=== PATIENT | female | born 1995 | race Caucasian/White ===

== ENCOUNTER 2024-07-01 09:36 | Outpatient (CLI) | payer OTHER, SELFPAY ==
[2024-07-01 10:18] LABS: Basophils Percent Auto 0.1 % (0.2-1.2); Eosinophils Absolute Auto 0.1 K/mm3 (0-0.3); Hematocrit 41.1 % (37.0-47.0); Hemoglobin 13.4 g/dL (12.0-15.0); Immature Granulocyte Absolute 0.02 K/mm3 (0.00-0.031); Immature Granulocyte Percent A 0.2 % (0-0.5); Lymphocytes Absolute Auto 1.39 K/mm3 (0.9-3.2); Lymphocytes Percent Auto 17.3 % (18.3-44.2); Mean Corpuscular HGB Conc 32.6 g/dl (32-36); Mean Corpuscular Hemoglobin 29.9 pg (26-34); Mean Corpuscular Volume 91.7 fl (80-100); Mean Platelet Volume 10.5 fl (7.4-10.4); Monocytes Absolute Auto 0.5 K/mm3 (0.1-0.6); Monocytes Percent Auto 5.9 % (2.6-8.5); Neutrophils Absolute Auto 6.1 K/mm3 (1.3-6.7); Neutrophils Percent Auto 75.5 % (45.5-73.1); Platelet Count Result 301 k/mm3 (150-375); Red Blood Count 4.48 M/mm3 (4.2-5.4); Red Cell Distribution Width 12.4 % (11.5-14.5)
[2024-07-01 10:38] LABS: Cholesterol 189 mg/dL (0-200); HDL Direct 49 mg/dL; Triglycerides 83 mg/dL (<150)
[2024-07-01 10:49] LABS: LDL Cholesterol Direct 113 mg/dL
[2024-07-01 11:49] LABS: Hemoglobin A1C 5.2 % (<5.7)
[2024-07-01 21:15] LABS: Progesterone <0.5 ng/mL
[2024-07-02 08:14] LABS: DHEA-Sulfate 182 mcg/dL (14-349); FSH 10.7 mIU/mL; Prolactin 7.1 ng/mL
[2024-07-04 20:43] LABS: Testosterone Free 3.2 pg/mL (0.1-6.4); Testosterone Total 29 ng/dL (2-45)
[2024-07-13 02:13] LABS: Estradiol, Ultrasensitive 38 pg/mL
== END 2024-07-01 09:37 | disposition home or self-care (01) ==
LOC: ANHLAB 09:38
PROVIDERS: Visit Provider Obstetrics & Gynecology
DX: E66.9 Obesity, unspecified (principal); N92.6 Irregular menstruation, unspecified; Z78.9 Other specified health status
CPT/HCPCS: 36415; 80061; 82627; 82670; 83001; 83036; 83498; 84144; 84146; 84402; 84403; 84443; 85025

== ENCOUNTER 2024-07-21 07:23 | Outpatient (CLI) | payer OTHER, SELFPAY ==
[2024-07-25 08:07] LABS: Progesterone 12.9 ng/mL
== END 2024-07-21 07:24 | disposition home or self-care (01) ==
LOC: ANHLAB 07:23
PROVIDERS: Visit Provider Obstetrics & Gynecology
DX: N92.6 Irregular menstruation, unspecified (principal)
CPT/HCPCS: 36415; 84144

== ENCOUNTER 2024-10-23 07:06 | Outpatient (CLI) | payer OTHER, SELFPAY ==
[2024-10-24 09:47] LABS: Progesterone 18.5 ng/mL
== END 2024-10-23 07:07 | disposition home or self-care (01) ==
PROVIDERS: Visit Provider Obstetrics & Gynecology
DX: Z78.9 Other specified health status (principal)
CPT/HCPCS: 36415; 84144

== ENCOUNTER 2024-11-18 10:47 | Outpatient (CLI) | payer OTHER, SELFPAY ==
[2024-11-18 12:33] LABS: Basophils Percent Auto 0.3 % (0.2-1.2); Eosinophils Absolute Auto 0.1 K/mm3 (0-0.3); Eosinophils Percent Auto 0.8 % (0-4.4); Hematocrit 40.5 % (37.0-47.0); Hemoglobin 13.5 g/dL (12.0-15.0); Immature Granulocyte Absolute 0.02 K/mm3 (0.00-0.031); Immature Granulocyte Percent A 0.3 % (0-0.5); Lymphocytes Absolute Auto 1.44 K/mm3 (0.9-3.2); Lymphocytes Percent Auto 20.2 % (18.3-44.2); Mean Corpuscular HGB Conc 33.3 g/dl (32-36); Mean Corpuscular Hemoglobin 30.1 pg (26-34); Mean Corpuscular Volume 90.2 fl (80-100); Mean Platelet Volume 10.2 fl (7.4-10.4); Monocytes Absolute Auto 0.4 K/mm3 (0.1-0.6); Neutrophils Absolute Auto 5.2 K/mm3 (1.3-6.7); Neutrophils Percent Auto 73.4 % (45.5-73.1); Platelet Count Result 284 k/mm3 (150-375); Red Blood Count 4.49 M/mm3 (4.2-5.4); Red Cell Distribution Width 12.7 % (11.5-14.5); White Blood Count 7.1 K/mm3 (4.5-10.0)
[2024-11-18 13:05] LABS: Glucose 1 Hour PP 50gm Dose 116 mg/dL
[2024-11-18 13:26] LABS: Rapid Plasma Reagin Non-Reactive (NonReactive)
[2024-11-18 13:42] LABS: HIV 1/2 Ab P24 Ag Result Negative (Negative)
[2024-11-18 13:51] LABS: Hepatitis B Surface Antigen Negative (Negative); Rubella IgG Antibody 37.1 IU/ML
[2024-11-20 03:34] LABS: Varicella IgG Antibody <1.00 S/CO
[2024-11-20 20:08] LABS: CMV IgG Antibody >10.00 U/mL
== END 2024-11-18 10:48 | disposition home or self-care (01) ==
LOC: ANHLAB 10:49
PROVIDERS: Visit Provider Obstetrics & Gynecology
DX: N94.89 Other specified conditions associated with female genital organs and menstrual cycle (principal)
CPT/HCPCS: 36415; 81220; 81329; 82947; 84702; 85025; 86592; 86644; 86703; 86747; 86762; 86787; 86850; 86900; 86901; 87086; 87340; G0432

== ENCOUNTER 2025-01-06 09:18 | Emergency (ER) | payer OTHER, SELFPAY ==
--- NOTE | ~2025-01-06 | US_ITS ---
EXAMINATION: US OB <=14 wk fetus w TV DATE: 01/06/2025 13:41 INDICATION: Vaginal bleeding in . TECHNIQUE: Real-time transabdominal and transvaginal pelvic ultrasound was performed. COMPARISON: Ultrasound 12/09/2024 FINDINGS: TRANSABDOMINAL ULTRASOUND: The uterus measures 10.6 x 5.8 x 5.9 cm. TRANSVAGINAL ULTRASOUND: There is an intrauterine gestational sac. The crown rump length measu res 3.1 cm, which correlates with an estimated gestational age of 10 weeks and 0 day(s) (+/-) 6 day(s ). heart motion is not identified by M-mode Doppler. The ovaries are not visualized. There is n o free fluid in the pelvis. IMPRESSION: 1. demise. Reviewed, dictated and finalized at location A. [facility] [employer] APPRENTICE IMPRESSION: 1. demise.
[2025-01-06 09:18] VITALS: BP 147/97; PULSE 98; RESP 16; TEMP 36.4; O2SAT 100
--- NOTE | 2025-01-06 11:24 | ED_ITS ---
HPI - General Chief complaint: Vaginal Bleeding <Rajwinder Finley PA-C - Last Filed: 01/06/25 14:45> Stated complaint: 13 weeks preg, heavy bleeding and cramping <Rajwinder Finley PA-C - Last Filed: 01/06/25 14:45> Time Seen by Provider: 01/06/25 11:24 <Rajwinder Finley PA-C - Last Filed: 01/06/25 14:45> Focused HPI: This is a 29 year old female that presents to the ER for heavy vaginal bleeding. Reports this started last night and continued into today. She is 13 weeks . She has had an US this . Her OB is Dr. Rg. GENERAL: Well-appearing, well-nourished, and in no acute distress. HEAD: Normocephalic, atraumatic. CHEST: Clear to auscultation. ?No respiratory distress. HEART: Regular rate and rhythm.? NEURO: ?Alert and oriented x3. Patient screened in triage and initial orders placed.? ?Additional care and disposition to be based upon?diagnostic testing and treatment. <Rajwinder Finley PA-C - Last Filed: 01/06/25 14:45> History of Present Illness HPI Narrative: Agree with HPI. Slightly more bleeding spotting but has not filled a pad. This is her 1st . <Jak aBrnhart MD - Last Filed: 01/06/25 14:17> Related Data Home medications: Home Medications ?Medication ?Instructions ?Recorded ?Confirmed ?Last Taken ?Type docosahexaenoic acid 200 mg mg PO 11/18/24 12/17/24 Unknown History capsule ( DHA) <Rajwinder Finley PA-C - Last Filed: 01/06/25 14:45> Allergies/Adverse reactions: Allergies Allergy/AdvReac Type Severity Reaction Status Date / Time Penicillins Allergy Intermediate Rash Verified 01/06/25 12:32 <Rajwinder Finley PA-C - Last Filed: 01/06/25 14:45> Review of Systems 2 Review of Systems: All systems reviewed & are unremarkable except as noted in HPI and below <Jak Barnhart MD - Last Filed: 01/06/25 14:17> Constitutional: Constitutional: Reports no additional constitutional complaints <Jak Barnhart MD - Last Filed: 01/06/25 14:17> Cardiovascular: Cardiovascular: Reports no additional cardiovascular complaints <Jak Barnhart MD - Last Filed: 01/06/25 14:17> Respiratory: Respiratory: Reports no additional respiratory complaints < Jak Barnhart MD - Last Filed: 01/06/25 14:17> Gastrointestinal: Gastrointestinal: Reports no additional gastrointestinal complaints <Jak Barnhart MD - Last Filed: 01/06/25 14:17> PMFSH Past Medical History Medical History: Medical History Suppression of menses <Rajwinder Finley PA-C - Last Filed: 01/06/25 14:45> Family History Family History: Family History Other Hypertension <Rajwinder Finley PA-C - Last Filed: 01/06/25 14:45> Social History Social History: Social History Smoking status: Never smoker Alcohol intake: never Substance use: never Substance use type: does not use Do You Feel Safe in your Home?: Yes Current Housing: Decline to Answer Concerned About Future Housing: Decline to Answer Difficulty Paying Gas/Electric Bills: Decline to Answer Difficulty Paying for Meds: Decline to Answer Currently Unemployed: Decline to Answer Education: Decline to Answer Difficulty w/ Childcare or Family Care: Decline to Answer Living arrangements: with family Additional living arrangements comments: Occupation/Education: occupation Gender identity (if verbalized by the patient): Female Sexual Orientation (if Verbalized by the Patient): Straight or Heterosexual <Rajwinder Finley PA-C - Last Filed: 01/06/25 14:45> Exam 2 Narrative: GENERAL: Well-appearing, well-nourished, and in no acute distress. HEAD: Normocephalic, atraumatic. ENT: Mucous membranes moist. CHEST: Clear to auscultation. No respiratory distress. HEART: Regular rate and rhythm. Normal peripheral pulses. ABDOMEN: Soft, nontender, nondistended. EXTREMITIES: Normal range of motion. No edema. NEURO: Alert and oriented x3. PSYCH: Normal mood and affect. <Jak Barnhart MD - Last Filed: 01/06/25 14:17> Course Course Emergency Course: Patient resting comfortably. Informed of results. Discussed with Dr. Puckett. Expectant management, f/u tomorrow in clinic for further evaluation. < Jak Barnhart MD - Last Filed: 01/06/25 14:17> Vital Signs Vital signs: Vital Signs Temperature 97.6 F 01/06/25 09:18 Pulse Rate 98 01/06/25 09:18 Respiratory Rate 16 01/06/25 09:18 Blood Pressure 147/97 H 01/06/25 09:18 Pulse Oximetry 100 01/06/25 09:18 Temperature 97.6 F 01/06/25 09:18 Pulse Rate 92 01/06/25 14:30 Respiratory Rate 16 01/06/25 14:30 Blood Pressure 141/98 H 01/06/25 14:30 Pulse Oximetry 100 01/06/25 14:30 <Rajwinder Finley PA-C - Last Filed: 01/06/25 14:45> Vital Signs Temperature 97.6 F 01/06/25 09:18 Pulse Rate 98 01/06/25 09:18 Respiratory Rate 16 01/06/25 09:18 Blood Pressure 147/97 H 01/06/25 09:18 Pulse Oximetry 100 01/06/25 09:18 Temperature 97.6 F 01/06/25 09:18 Pulse Rate 92 01/06/25 14:30 Respiratory Rate 16 01/06/25 14:30 Blood Pressure 141/98 H 01/06/25 14:30 Pulse Oximetry 100 01/06/25 14:30 <Jak Barnhart MD - Last Filed: 01/06/25 14:17> MDM - OB/Uterine Contractions Lab Data Result diagrams: 01/06/25 12:26 01/06/25 12:26 <Rajwinder Finley PA-C - Last Filed: 01/06/25 14:45> Labs: Lab Results 01/06/25 Range/Units 12:26 WBC 7.9 (4.5-10.0) K/mm3 RBC 4.74 (4.2-5.4) M/mm3 Hgb 14.1 (12.0-15.0) g/dL Hct 42.3 (37.0-47.0) % MCV 89.2 (80-100) fl MCH 29.7 (26-34) pg MCHC 33.3 (32-36) g/dl RDW 12.1 (11.5-14.5) % Plt Count 308 (150-375) k/mm3 MPV 9.9 (7.4-10.4) fl Immature Gran % (Auto) 0.4 (0-0.5) % Neut % (Auto) 74.7 H (45.5-73.1) % Lymph % (Auto) 19.0 (18.3-44.2) % [place] % (Auto) 4.8 (2.6-8.5) % Eos % (Auto) 0.8 (0-4.4) % Baso % (Auto) 0.3 (0.2-1.2) % Lymph # (Auto) 1.51 (0.9-3.2) K/mm3 [place] # (Auto) 0.4 (0.1-0.6) K/mm3 Eos # (Auto) 0.1 (0-0.3) K/mm3 Baso # (Auto) 0.0 (0.0-0.1) K/mm3 Abs Immat Gran (auto) 0.03 (0.00-0.031) K/mm3 Absolute Neuts (auto) 5.9 (1.3-6.7) K/mm3 Absolute Nucleated RBC 0.000 (0.0-0.012) K/mm3 Nucleated RBC % 0.0 (0.0-0.2) % PT 12.5 (11.1-14.7) Seconds INR 0.9 APTT 30.7 (22.3-36.8) Seconds Sodium 139 (137-145) mmol/L Potassium 4.3 (3.4-5.0) mmol/L Chloride 103 (98-107) mmol/L Carbon Dioxide 26 (22-30) mmol/L Anion Gap 10 (4-12) mmol/L BUN 9 (7-17) mg/dL Creatinine 0.45 L (0.7-1.0) mg/dL Estim Creat Clear Calc 188 ml/min Estimated GFR > 60 (59 - ) Glucose 92 (65-110) mg/dL Calcium 9.7 (8.4-10.2) mg/dL Total Bilirubin 1.0 (0.2-1.3) mg/dL AST 27 (14-36) U/L ALT 17 (6-35) U/L Alkaline Phosphatase 49 (38-126) U/L Total Protein 9.0 H (6.3-8.2) g/dL Albumin 4.5 (3.5-5.1) g/dL Beta HCG, Quant 1175.20 mIU/ML Blood Type O Positive Antibody Screen Negative Screen Not Reportable Baby's Blood Type Not Reportable Baby's KALIA Not Reportable Doses of RhIg Required 0 <Rajwinder Finley PA-C - Last Filed: 01/06/25 14:45> Lab Results 01/06/25 Range/Units 12:26 WBC 7.9 (4.5-10.0) K/mm3 RBC 4.74 (4.2-5.4) M/mm3 Hgb 14.1 (12.0-15.0) g/dL Hct 42.3 (37.0-47.0) % MCV 89.2 (80-100) fl MCH 29.7 (26-34) pg MCHC 33.3 (32-36) g/dl RDW 12.1 (11.5-14.5) % Plt Count 308 (150-375) k/mm3 MPV 9.9 (7.4-10.4) fl Immature Gran % (Auto) 0.4 (0-0.5) % Neut % (Auto) 74.7 H (45.5-73.1) % Lymph % (Auto) 19.0 (18.3-44.2) % [place] % (Auto) 4.8 (2.6-8.5) % Eos % (Auto) 0.8 (0-4.4) % Baso % (Auto) 0.3 (0.2-1.2) % Lymph # (Auto) 1.51 (0.9-3.2) K/mm3 [place] # (Auto) 0.4 (0.1-0.6) K/mm3 Eos # (Auto) 0.1 (0-0.3) K/mm3 Baso # (Auto) 0.0 (0.0-0.1) K/mm3 Abs Immat Gran (auto) 0.03 (0.00-0.031) K/mm3 Absolute Neuts (auto) 5.9 (1.3-6.7) K/mm3 Absolute Nucleated RBC 0.000 (0.0-0.012) K/mm3 Nucleated RBC % 0.0 (0.0-0.2) % PT 12.5 (11.1-14.7) Seconds INR 0.9 APTT 30.7 (22.3-36.8) Seconds Sodium 139 (137-145) mmol/L Potassium 4.3 (3.4-5.0) mmol/L Chloride 103 (98-107) mmol/L Carbon Dioxide 26 (22-30) mmol/L Anion Gap 10 (4-12) mmol/L BUN 9 (7-17) mg/dL Creatinine 0.45 L (0.7-1.0) mg/dL Estim Creat Clear Calc 188 ml/min Estimated GFR > 60 (59 - ) Glucose 92 (65-110) mg/dL Calcium 9.7 (8.4-10.2) mg/dL Total Bilirubin 1.0 (0.2-1.3) mg/dL AST 27 (14-36) U/L ALT 17 (6-35) U/L Alkaline Phosphatase 49 (38-126) U/L Total Protein 9.0 H (6.3-8.2) g/dL Albumin 4.5 (3.5-5.1) g/dL Beta HCG, Quant 1175.20 mIU/ML Blood Type O Positive Antibody Screen Negative Screen Not Reportable Baby's Blood Type Not Reportable Baby's KALIA Not Reportable Doses of RhIg Required 0 <Jak Barnhart MD - Last Filed: 01/06/25 14:17> Imaging Data Radiologist's impression: ITS Impressions Obstetrics Ultrasound 01/06/25 13:43 IMPRESSION: 1. demise. <Jak Barnhart MD - Last Filed: 01/06/25 14:17> Critical Care Time Critical Care Time Critical Care Time: No <Rajwinder Finley PA-C - Last Filed: 01/06/25 14:45> Discharge Plan Discharge Clinical Impression: demise, less than 22 weeks <Rajwinder Finley PA-C - Last Filed: 01/06/25 14:45> Patient Disposition: Home, Self-Care <Rajwinder Finley PA-C - Last Filed: 01/06/25 14:45> Condition: Stable <RADHA Hightower Last Filed: 01/06/25 14:45> Instructions: Miscarriage (ED) <RADHA Hightower Last Filed: 01/06/25 14:45> Additional Instructions: Contact your OBs office to schedule follow-up appointment for tomorrow. Return the ER if your bleeding through more than 1 pad an hour for 3 continuous hours, he developed fever 100.4? F, or you have additional concerns. Take Tylenol or ibuprofen as needed for pain. <Rajwinder Finley PA-C - Last Filed: 01/06/25 14:45> Patient Language: [place] Zealander <Rajwinder Finley PA-C - Last Filed: 01/06/25 14:45> Prescriptions: No Action DHA 200 mg capsule PO <RADHA Hightower Last Filed: 01/06/25 14:45> Follow-up/Referrals: UNKNOWN,DOCTOR [Primary Care Provider] - Otto Puckett MD [Physician] - 1 Day <RADHA Hightower Last Filed: 01/06/25 14:45>
[2025-01-06 12:32] LABS: Basophils Percent Auto 0.3 % (0.2-1.2); Eosinophils Absolute Auto 0.1 K/mm3 (0-0.3); Eosinophils Percent Auto 0.8 % (0-4.4); Hematocrit 42.3 % (37.0-47.0); Hemoglobin 14.1 g/dL (12.0-15.0); Immature Granulocyte Absolute 0.03 K/mm3 (0.00-0.031); Immature Granulocyte Percent A 0.4 % (0-0.5); Lymphocytes Absolute Auto 1.51 K/mm3 (0.9-3.2); Mean Corpuscular HGB Conc 33.3 g/dl (32-36); Mean Corpuscular Hemoglobin 29.7 pg (26-34); Mean Corpuscular Volume 89.2 fl (80-100); Mean Platelet Volume 9.9 fl (7.4-10.4); Monocytes Absolute Auto 0.4 K/mm3 (0.1-0.6); Monocytes Percent Auto 4.8 % (2.6-8.5); Neutrophils Absolute Auto 5.9 K/mm3 (1.3-6.7); Neutrophils Percent Auto 74.7 % (45.5-73.1); Platelet Count Result 308 k/mm3 (150-375); Red Blood Count 4.74 M/mm3 (4.2-5.4); Red Cell Distribution Width 12.1 % (11.5-14.5); White Blood Count 7.9 K/mm3 (4.5-10.0)
[2025-01-06 12:44] LABS: INR 0.9; Prothrombin Time 12.5 Seconds (11.1-14.7)
[2025-01-06 12:45] LABS: Partial Thromboplastin Time 30.7 Seconds (22.3-36.8)
[2025-01-06 12:57] LABS: Alanine Aminotransferase 17 U/L (6-35); Albumin Level 4.5 g/dL (3.5-5.1); Alkaline Phosphatase 49 U/L (38-126); Anion Gap 10 mmol/L (4-12); Aspartate Amino Transferase 27 U/L (14-36); Blood Urea Nitrogen 9 mg/dL (7-17); Calcium 9.7 mg/dL (8.4-10.2); Carbon Dioxide 26 mmol/L (22-30); Chloride 103 mmol/L (98-107); Estimated CRCL calculation 188 ml/min; Estimated Glomerular Filt Rate > 60; Glucose 92 mg/dL (65-110); Potassium 4.3 mmol/L (3.4-5.0); Sodium 139 mmol/L (137-145)
[2025-01-06 14:30] VITALS: BP 141/98; PULSE 92; RESP 16; O2SAT 100
== END 2025-01-06 14:30 | disposition home or self-care (01) ==
PROVIDERS: Physician Assistant; Emergency Provider Emergency Medicine
DX: O36.4XX0 Maternal care for intrauterine death, not applicable or unspecified (principal); Z3A.13 13 weeks gestation of pregnancy
CPT/HCPCS: 36415; 76801; 76817; 80053; 84702; 85025; 85461; 85610; 85730; 86850; 86900; 86901; 99284

== ENCOUNTER 2025-01-08 17:36 | Inpatient (IN) | payer OTHER, SELFPAY ==
[2025-01-08 17:42] VITALS: BP 150/108; PULSE 90; RESP 16; TEMP 36; O2SAT 100
--- NOTE | 2025-01-08 18:11 | ED.PREGNANCY ---
HPI - General Chief complaint: Vaginal Bleeding <Rajwinder Finley PA-C - Last Filed: 01/09/25 15:16> Stated complaint: miscarriage-heavy vaginal bleeding <Rajwinder Finley PA-C - Last Filed: 01/09/25 15:16> Time Seen by Provider: 01/08/25 18:11 <Rajwinder Finley PA-C - Last Filed: 01/09/25 15:16> Focused HPI: This is a 29 year old female that presents to the ER for vaginal bleeding. Reports she is currently miscarrying. Her OB is Dr. Rg. She is scheduled for a D&C on January 11. She started to have more sever bleeding tonight which prompted her to be seen. GENERAL: Well-appearing, well-nourished, and in no acute distress. HEAD: Normocephalic, atraumatic. CHEST: Clear to auscultation. ?No respiratory distress. HEART: Regular rate and rhythm.? NEURO: ?Alert and oriented x3. Patient screened in triage and initial orders placed.? ?Additional care and disposition to be based upon?diagnostic testing and treatment. <Rajwinder Finley PA-C - Last Filed: 01/09/25 15:16> Focused HPI: This is a 29 year old female that presents to the ER for vaginal bleeding. Reports she is currently miscarrying. Her OB is Dr. Rg. She is scheduled for a D&C on January 11. She started to have more severe bleeding tonight which prompted her to be seen. GENERAL: Well-appearing, well-nourished, and in no acute distress. HEAD: Normocephalic, atraumatic. CHEST: Clear to auscultation. ?No respiratory distress. HEART: Regular rate and rhythm.? NEURO: ?Alert and oriented x3. Patient screened in triage and initial orders placed.? ?Additional care and disposition to be based upon?diagnostic testing and treatment. <Maryellen Oreilly APRN - Last Filed: 01/09/25 01:41> History of Present Illness HPI Narrative: I agree with the assessment and documentation of Rajwinder Finley PA-C. <Maryellen Oreilly APRN - Last Filed: 01/09/25 01:41> Related Data Home medications: Home Medications ?Medication ?Instructions ?Recorded ?Confirmed ?Last Taken ?Type No Home Medications 01/09/25 01/09/25 Unknown History <Rajwinder Finley PA-C - Last Filed: 01/09/25 15:16> Allergies/Adverse reactions: Allergies Allergy/AdvReac Type Severity Reaction Status Date / Time Penicillins Allergy Intermediate Rash Verified 01/09/25 03:59 <Rajwinder Finley PA-C - Last Filed: 01/09/25 15:16> Review of Systems Review of Systems: All systems reviewed & are unremarkable except as noted in HPI and below <Maryellen Oreilly APRN - Last Filed: 01/09/25 01:41> PMFSH Past Medical History Medical History: Medical History Suppression of menses <Rajwinder Finley PA-C - Last Filed: 01/09/25 15:16> Family History Family History: Family History Other Hypertension <RADHA Hightower Last Filed: 01/09/25 15:16> Social History Social History: Social History Smoking status: Never smoker Alcohol intake: never Substance use: never Substance use type: does not use Do You Feel Safe in your Home?: Yes Lack of Transportation: No Lack of Food: Never True Current Housing: I Have Housing Concerned About Future Housing: No Difficulty Paying Gas/Electric Bills: No Difficulty Paying for Meds: No Currently Unemployed: No Education: Bachelor's Degree Difficulty w/ Childcare or Family Care: No Living arrangements: with family Additional living arrangements comments: Occupation/Education: occupation Gender identity (if verbalized by the patient): Female Sexual Orientation (if Verbalized by the Patient): Straight or Heterosexual Spiritual care concerns: No <Rajwinder Finley PA-C - Last Filed: 01/09/25 15:16> Exam Narrative: GENERAL: Well appearing, well-nourished, non-toxic, in no acute distress. HEAD: Normocephalic, atraumatic. NECK: Supple. No adenopathy, no masses. RESPIRATORY: Airway patent, respirations nonlabored. Clear to auscultation bilaterally, no rales, rhonchi, wheezing. CARDIOVASCULAR: Regular rate and rhythm without murmurs, rubs, or gallops. Peripheral pulses 2+ and equal bilaterally. ABDOMINAL: Soft, nontender, nondistended, no hepatosplenomegaly. Normoactive BS. MUSCULOSKELETAL: Moves all extremities. Strength/ROM intact without gross deformities. SKIN: Warm, dry, normal color. No rashes. NEURO: A&O X3. Speech clear. Cranial nerves II-XII grossly intact. Steady gait. No ataxic movements. PSYCHIATRIC: Appropriate mood and affect. Normal interaction. : Minimal amount of vaginal bleeding during speculum exam but possible products of conception visible at cervix <Maryellen Oreilly APRN - Last Filed: 01/09/25 01:41> Course Vital Signs Vital signs: Vital Signs Temperature 96.8 F L 01/08/25 17:42 Pulse Rate 90 01/08/25 17:42 Respiratory Rate 16 01/08/25 17:42 Blood Pressure 150/108 H 01/08/25 17:42 Pulse Oximetry 100 01/08/25 17:42 Temperature 97.9 F 01/09/25 09:27 Pulse Rate 86 01/09/25 13:17 Respiratory Rate 16 01/09/25 09:27 Blood Pressure 114/78 01/09/25 13:17 Pulse Oximetry 96 01/09/25 13:16 Oxygen Delivery Room Air 01/09/25 09:10 <Rajwinder Finley PA-C - Last Filed: 01/09/25 15:16> Vital Signs Temperature 96.8 F L 01/08/25 17:42 Pulse Rate 90 01/08/25 17:42 Respiratory Rate 16 01/08/25 17:42 Blood Pressure 150/108 H 01/08/25 17:42 Pulse Oximetry 100 01/08/25 17:42 Temperature 97.9 F 01/09/25 09:27 Pulse Rate 86 01/09/25 13:17 Respiratory Rate 16 01/09/25 09:27 Blood Pressure 114/78 01/09/25 13:17 Pulse Oximetry 96 01/09/25 13:16 Oxygen Delivery Room Air 01/09/25 09:10 <Maryellen Oreilly APRN - Last Filed: 01/09/25 01:41> MDM - OB/Uterine Contractions MDM Narrative Medical decision making narrative: This is a 29 year old female that presents to the ER for vaginal bleeding. Reports she is currently miscarrying. Her OB is Dr. Rg. She is scheduled for a D&C on January 11. She started to have more severe bleeding tonight which prompted her to be seen. Labs Ordered: CBC, CMP, UA, RH immune globulin, INR, APTT, beta hCG quant Imaging Ordered: None necessary Medications Ordered: None necessary Results: Pt's beta hCG quant was 374, no UTI on urinalysis Diagnosis: demise, vaginal bleeding Consults: 2400- Dr. Puckett called for OBGYN consult. 0115- Dr. Puckett called back and reports he will perform a D & C on pt in the morning. He requests she stays NPO through the rest of the night. Dr. Puckett reports he will accept the pt under his name and she can go to [facility] to wait for her procedure. Patient Education/Shared MDM: Results shared with patient. She denies the need for any pain medication. Pt is in agreement and verbalizes understanding of plan. <Maryellen Oreilly APRN - Last Filed: 01/09/25 01:41> Differential Diagnosis Differential diagnosis: Likely other ( demise, vaginal bleeding, spontaneous ) <Maryellen Oreilly APRN - Last Filed: 01/09/25 01:41> Lab Data Attestation: I reviewed the patient's lab results. <Maryellen Oreilly APRN - Last Filed: 01/09/25 01:41> Result diagrams: 01/08/25 21:24 01/08/25 21:24 <Rajwinder Finley PA-C - Last Filed: 01/09/25 15:16> Labs: Lab Results 01/08/25 01/09/25 01/09/25 Range/Units 21:24 00:01 00:05 WBC 11.8 H (4.5-10.0) K/mm3 RBC 4.46 (4.2-5.4) M/mm3 Hgb 13.3 (12.0-15.0) g/dL Hct 39.3 (37.0-47.0) % MCV 88.1 (80-100) fl MCH 29.8 (26-34) pg MCHC 33.8 (32-36) g/dl RDW 12.2 (11.5-14.5) % Plt Count 285 (150-375) k/mm3 MPV 10.2 (7.4-10.4) fl Immature Gran % (Auto) 0.4 (0-0.5) % Neut % (Auto) 83.2 H (45.5-73.1) % Lymph % (Auto) 12.1 L (18.3-44.2) % [place] % (Auto) 3.9 (2.6-8.5) % Eos % (Auto) 0.2 (0-4.4) % Baso % (Auto) 0.2 (0.2-1.2) % Lymph # (Auto) 1.43 (0.9-3.2) K/mm3 [place] # (Auto) 0.5 (0.1-0.6) K/mm3 Eos # (Auto) 0.0 (0-0.3) K/mm3 Baso # (Auto) 0.0 (0.0-0.1) K/mm3 Abs Immat Gran (auto) 0.05 H (0.00-0.031) K/mm3 Absolute Neuts (auto) 9.8 H (1.3-6.7) K/mm3 Absolute Nucleated RBC 0.000 (0.0-0.012) K/mm3 Nucleated RBC % 0.0 (0.0-0.2) % PT 13.3 (11.1-14.7) Seconds INR 1.0 APTT 26.6 (22.3-36.8) Seconds Sodium 137 (137-145) mmol/L Potassium 3.9 (3.4-5.0) mmol/L Chloride 104 (98-107) mmol/L Carbon Dioxide 24 (22-30) mmol/L Anion Gap 9 (4-12) mmol/L BUN 8 (7-17) mg/dL Creatinine 0.50 L (0.7-1.0) mg/dL Estim Creat Clear Calc 170 ml/min Estimated GFR > 60 (59 - ) Glucose 101 (65-110) mg/dL Calcium 9.6 (8.4-10.2) mg/dL Total Bilirubin 0.9 (0.2-1.3) mg/dL AST 16 (14-36) U/L ALT 15 (6-35) U/L Alkaline Phosphatase 63 (38-126) U/L Total Protein 8.0 (6.3-8.2) g/dL Albumin 4.3 (3.5-5.1) g/dL Beta HCG, Quant 374.62 mIU/ML Urine Color Yellow (Yellow) Urine Appearance Clear (Clear) Urine pH 6.5 (5.0-9.0) Ur Specific [place] 1.014 (1.001-1.035) Urine Protein Negative (Negative) mg/dL Urine Glucose (UA) Negative (Negative) mg/dL Urine Ketones 1+ H (Negative) mg/dL Ur Blood (Man) 3+ H (Negative) Urine Nitrate Negative (Negative) Urine Bilirubin Negative (Negative) Urine Urobilinogen 1.0 (<2.0) mg/dL Leukocyte Esterase Rfl Trace H (Negative) YASH/UL Urine RBC 0-2 (0-2) /hpf Urine WBC 0-5 (0-3) /hpf Ur Squamous Epith Cells None seen (Few) /hpf Urine Bacteria None seen /hpf Urine Casts 0-2 POC Urine HCG, Qual Positive (Negative) Blood Type O Positive Antibody Screen Negative Screen Not Reportable Baby's Blood Type Not Reportable Baby's KALIA Not Reportable Doses of RhIg Required 0 <Rajwinder Finley PA-C - Last Filed: 01/09/25 15:16> Lab Results 01/08/25 01/09/25 01/09/25 Range/Units 21:24 00:01 00:05 WBC 11.8 H (4.5-10.0) K/mm3 RBC 4.46 (4.2-5.4) M/mm3 Hgb 13.3 (12.0-15.0) g/dL Hct 39.3 (37.0-47.0) % MCV 88.1 (80-100) fl MCH 29.8 (26-34) pg MCHC 33.8 (32-36) g/dl RDW 12.2 (11.5-14.5) % Plt Count 285 (150-375) k/mm3 MPV 10.2 (7.4-10.4) fl Immature Gran % (Auto) 0.4 (0-0.5) % Neut % (Auto) 83.2 H (45.5-73.1) % Lymph % (Auto) 12.1 L (18.3-44.2) % [place] % (Auto) 3.9 (2.6-8.5) % Eos % (Auto) 0.2 (0-4.4) % Baso % (Auto) 0.2 (0.2-1.2) % Lymph # (Auto) 1.43 (0.9-3.2) K/mm3 [place] # (Auto) 0.5 (0.1-0.6) K/mm3 Eos # (Auto) 0.0 (0-0.3) K/mm3 Baso # (Auto) 0.0 (0.0-0.1) K/mm3 Abs Immat Gran (auto) 0.05 H (0.00-0.031) K/mm3 Absolute Neuts (auto) 9.8 H (1.3-6.7) K/mm3 Absolute Nucleated RBC 0.000 (0.0-0.012) K/mm3 Nucleated RBC % 0.0 (0.0-0.2) % PT 13.3 (11.1-14.7) Seconds INR 1.0 APTT 26.6 (22.3-36.8) Seconds Sodium 137 (137-145) mmol/L Potassium 3.9 (3.4-5.0) mmol/L Chloride 104 (98-107) mmol/L Carbon Dioxide 24 (22-30) mmol/L Anion Gap 9 (4-12) mmol/L BUN 8 (7-17) mg/dL Creatinine 0.50 L (0.7-1.0) mg/dL Estim Creat Clear Calc 170 ml/min Estimated GFR > 60 (59 - ) Glucose 101 (65-110) mg/dL Calcium 9.6 (8.4-10.2) mg/dL Total Bilirubin 0.9 (0.2-1.3) mg/dL AST 16 (14-36) U/L ALT 15 (6-35) U/L Alkaline Phosphatase 63 (38-126) U/L Total Protein 8.0 (6.3-8.2) g/dL Albumin 4.3 (3.5-5.1) g/dL Beta HCG, Quant 374.62 mIU/ML Urine Color Yellow (Yellow) Urine Appearance Clear (Clear) Urine pH 6.5 (5.0-9.0) Ur Specific [place] 1.014 (1.001-1.035) Urine Protein Negative (Negative) mg/dL Urine Glucose (UA) Negative (Negative) mg/dL Urine Ketones 1+ H (Negative) mg/dL Ur Blood (Man) 3+ H (Negative) Urine Nitrate Negative (Negative) Urine Bilirubin Negative (Negative) Urine Urobilinogen 1.0 (<2.0) mg/dL Leukocyte Esterase Rfl Trace H (Negative) YASH/UL Urine RBC 0-2 (0-2) /hpf Urine WBC 0-5 (0-3) /hpf Ur Squamous Epith Cells None seen (Few) /hpf Urine Bacteria None seen /hpf Urine Casts 0-2 POC Urine HCG, Qual Positive (Negative) Blood Type O Positive Antibody Screen Negative Screen Not Reportable Baby's Blood Type Not Reportable Baby's KALIA Not Reportable Doses of RhIg Required 0 <Maryellen Oreilly APRN - Last Filed: 01/09/25 01:41> Critical Care Time Critical Care Time Critical Care Time: No <Rajwinder Finley PA-C - Last Filed: 01/09/25 15:16> Discharge Plan Discharge Clinical Impression: Vaginal bleeding, Incomplete , demise <RADHA Hightower Last Filed: 01/09/25 15:16> Patient Disposition: Still a Patient <Rajwinder Finley PA-C - Last Filed: 01/09/25 15:16> Condition: Stable <Rajwinder Finley PA-C - Last Filed: 01/09/25 15:16>
[2025-01-08 21:17] VITALS: BP 129/77; PULSE 73
[2025-01-08 21:18] VITALS: BP 129/89; PULSE 75
[2025-01-08 21:20] VITALS: BP 127/94; PULSE 76
[2025-01-08 21:29] LABS: Basophils Percent Auto 0.2 % (0.2-1.2); Eosinophils Percent Auto 0.2 % (0-4.4); Hematocrit 39.3 % (37.0-47.0); Hemoglobin 13.3 g/dL (12.0-15.0); Immature Granulocyte Absolute 0.05 K/mm3 (0.00-0.031); Immature Granulocyte Percent A 0.4 % (0-0.5); Lymphocytes Absolute Auto 1.43 K/mm3 (0.9-3.2); Lymphocytes Percent Auto 12.1 % (18.3-44.2); Mean Corpuscular HGB Conc 33.8 g/dl (32-36); Mean Corpuscular Hemoglobin 29.8 pg (26-34); Mean Corpuscular Volume 88.1 fl (80-100); Mean Platelet Volume 10.2 fl (7.4-10.4); Monocytes Absolute Auto 0.5 K/mm3 (0.1-0.6); Monocytes Percent Auto 3.9 % (2.6-8.5); Neutrophils Absolute Auto 9.8 K/mm3 (1.3-6.7); Neutrophils Percent Auto 83.2 % (45.5-73.1); Platelet Count Result 285 k/mm3 (150-375); Red Blood Count 4.46 M/mm3 (4.2-5.4); Red Cell Distribution Width 12.2 % (11.5-14.5); White Blood Count 11.8 K/mm3 (4.5-10.0)
[2025-01-08 21:39] LABS: Alanine Aminotransferase 15 U/L (6-35); Albumin Level 4.3 g/dL (3.5-5.1); Alkaline Phosphatase 63 U/L (38-126); Anion Gap 9 mmol/L (4-12); Aspartate Amino Transferase 16 U/L (14-36); Bilirubin,Total 0.9 mg/dL (0.2-1.3); Blood Urea Nitrogen 8 mg/dL (7-17); Calcium 9.6 mg/dL (8.4-10.2); Carbon Dioxide 24 mmol/L (22-30); Chloride 104 mmol/L (98-107); Estimated CRCL calculation 170 ml/min; Estimated Glomerular Filt Rate > 60; Glucose 101 mg/dL (65-110); Potassium 3.9 mmol/L (3.4-5.0); Sodium 137 mmol/L (137-145)
[2025-01-08 21:40] LABS: Partial Thromboplastin Time 26.6 Seconds (22.3-36.8); Prothrombin Time 13.3 Seconds (11.1-14.7)
[2025-01-08 21:55] LABS: Beta HCG Quantitative 374.62 mIU/ML
[2025-01-08 22:30] VITALS: BP 110/80; PULSE 68; RESP 16; O2SAT 100
[2025-01-09] VITALS (13 sets, daily range): BP systolic 99–124; BP diastolic 74–87; PULSE 63–96; RESP 15–22; TEMP 36.6–37; O2SAT 95–100; BMI 37.3
[2025-01-09 00:12] LABS: Add Urine Microscopic? YES; Appearance Urine Clear (Clear); Bacteria Urine None Seen /hpf; Bilirubin Urine Negative (Negative); Blood Urine 3+ (Negative); Color Urine Yellow (Yellow); Glucose Urine UA Negative (Negative); Ketones Urine 1+ mg/dL (Negative); Leukocyte Esterase Ur Trace LEU/UL (Negative); Nitrate Urine Negative (Negative); Non Pathogenic Casts 0-2; Protein Urine Negative (Negative); RBC Urine 0-2 /hpf (0-2); Specific Grav Ur 1.014 (1.001-1.035); Squamous Epithelial Cell Urine None Seen /hpf (Few); WBC Urine 0-5 /hpf (0-3); pH Urine 6.5 (5.0-9.0)
[2025-01-09 01:35] LABS: BEDSIDEPREGUCG Positive (Negative)
[2025-01-09] MEDS: LACTATED RINGERS 1,000 ML 125 ML IV CONT (03:05)
--- NOTE | 2025-01-09 03:09 | LDADM ---
This patient, Toshia Blackburn, was admitted to [facility] on 01/09/25 at 02:22. Plans for pain management were discussed with patient. Patient/family oriented to hospital policies and general routines including ID bracelet, bed and alarms, visiting hours, pain management, procedures, bathroom and other care routines, personal items, smoking policy, room service/diet and guest tray routines, security routines, and visiting hours. Patient/Family are encouraged to report perceived risks to care and to ask questions if they do not understand what they are told or what they should do. See [facility] for further documentation.
--- NOTE | 2025-01-09 07:16 | WPDANESEPP ---
Anes - Eval Pre Procedure Procedure: Dilation & Currettage Date/Time: 01/09/25 07:16 Surgeon: Italo Preop Diagnosis: Missed AB 10wks Pre Op Diagnosis: vaginal bleeding, demise Patient Data Age: 29 Gender: F Height: 1.68 m Weight: 105 kg Last Vital Signs Temp 97.8 F 01/09/25 02:17 Pulse 91 01/09/25 02:18 Resp 15 01/09/25 02:08 BP 120/80 01/09/25 02:18 Pulse Ox 98 01/09/25 02:17 O2 Del Method Room Air 01/09/25 03:12 Allergies Allergy/AdvReac Type Severity Reaction Status Date / Time Penicillins Allergy Intermediate Rash Verified 01/09/25 03:59 Home Medications ?Medication ?Instructions ?Recorded ?Confirmed ?Type No Home Medications 01/09/25 01/09/25 History Laboratory Tests 01/08/25 01/09/25 01/09/25 21:24 00:01 00:05 WBC 11.8 H K/mm3 (4.5-10.0) RBC 4.46 M/mm3 (4.2-5.4) Hgb 13.3 g/dL (12.0-15.0) Hct 39.3 % (37.0-47.0) MCV 88.1 fl (80-100) MCH 29.8 pg (26-34) MCHC 33.8 g/dl (32-36) RDW 12.2 % (11.5-14.5) Plt Count 285 k/mm3 (150-375) MPV 10.2 fl (7.4-10.4) Immature Gran % (Auto) 0.4 % (0-0.5) Neut % (Auto) 83.2 H % (45.5-73.1) Lymph % (Auto) 12.1 L % (18.3-44.2) [place] % (Auto) 3.9 % (2.6-8.5) Eos % (Auto) 0.2 % (0-4.4) Baso % (Auto) 0.2 % (0.2-1.2) Lymph # (Auto) 1.43 K/mm3 (0.9-3.2) [place] # (Auto) 0.5 K/mm3 (0.1-0.6) Eos # (Auto) 0.0 K/mm3 (0-0.3) Baso # (Auto) 0.0 K/mm3 (0.0-0.1) Abs Immat Gran (auto) 0.05 H K/mm3 (0.00-0.031) Absolute Neuts (auto) 9.8 H K/mm3 (1.3-6.7) Absolute Nucleated RBC 0.000 K/mm3 (0.0-0.012) Nucleated RBC % 0.0 % (0.0-0.2) PT 13.3 Seconds (11.1-14.7) INR 1.0 APTT 26.6 Seconds (22.3-36.8) Sodium 137 mmol/L (137-145) Potassium 3.9 mmol/L (3.4-5.0) Chloride 104 mmol/L (98-107) Carbon Dioxide 24 mmol/L (22-30) Anion Gap 9 mmol/L (4-12) BUN 8 mg/dL (7-17) Creatinine 0.50 L mg/dL (0.7-1.0) Estim Creat Clear Calc 170 ml/min Estimated GFR > 60 (59 - ) Glucose 101 mg/dL (65-110) Calcium 9.6 mg/dL (8.4-10.2) Total Bilirubin 0.9 mg/dL (0.2-1.3) AST 16 U/L (14-36) ALT 15 U/L (6-35) Alkaline Phosphatase 63 U/L (38-126) Total Protein 8.0 g/dL (6.3-8.2) Albumin 4.3 g/dL (3.5-5.1) Beta HCG, Quant 374.62 mIU/ML Urine Color Yellow (Yellow) Urine Appearance Clear (Clear) Urine pH 6.5 (5.0-9.0) Ur Specific [place] 1.014 (1.001-1.035) Urine Protein Negative mg/dL (Negative) Urine Glucose (UA) Negative mg/dL (Negative) Urine Ketones 1+ H mg/dL (Negative) Ur Blood (Man) 3+ H (Negative) Urine Nitrate Negative (Negative) Urine Bilirubin Negative (Negative) Urine Urobilinogen 1.0 mg/dL (<2.0) Leukocyte Esterase Rfl Trace H YASH/UL (Negative) Urine RBC 0-2 /hpf (0-2) Urine WBC 0-5 /hpf (0-3) Ur Squamous Epith Cells None seen /hpf (Few) Urine Bacteria None seen /hpf Urine Casts 0-2 POC Urine HCG, Qual Positive (Negative) Blood Type O Positive Antibody Screen Negative Screen Not Reportable Baby's Blood Type Not Reportable Baby's KALIA Not Reportable Doses of RhIg Required 0 : gestational age (currently 10 wk missed AB) Patient hx anesthesia problems: none Family hx anesthesia problems: none Results Review: All pre-operative results and documents have been reviewed as part of the pre-operative evaluation. PMFSH Past Medical History Medical History Suppression of menses Family History Family History Other Hypertension Social History Social History Smoking status: Never smoker Alcohol intake: never Substance use: never Substance use type: does not use Do You Feel Safe in your Home?: Yes Lack of Transportation: No Lack of Food: Never True Current Housing: I Have Housing Concerned About Future Housing: No Difficulty Paying Gas/Electric Bills: No Difficulty Paying for Meds: No Currently Unemployed: No Education: Bachelor's Degree Difficulty w/ Childcare or Family Care: No Living arrangements: with family Additional living arrangements comments: Occupation/Education: occupation Gender identity (if verbalized by the patient): Female Sexual Orientation (if Verbalized by the Patient): Straight or Heterosexual Spiritual care concerns: No Exam Day of Procedure 01/09/25 07:16 Patient weight: obese (bmi 37)
--- NOTE | 2025-01-09 07:23 | PM.IMHP ---
H&P: HPI History of Present Illness Date/Time: 01/09/25 07:23 Chief Complaint: Spontaneous missed Narrative: 29yo , LMP 09/29/24 who presented to the ER for acute vaginal bleeding in the setting of spontaneous missed . Patient initially had vaginal bleeding on 01/05/25 and presented to the ER. She had an US that showed CRL was measuring 3.1cm with no cardiac activity. Patient was estimated to be 13 wks gestation but was only measuring 10wks. She was counseled outpatient on management options and is scheduled for D&C on 01/11/25. Patient started having heavier bleeding yesterday. She is O+ blood type. Review of Systems Cardiovascular: Cardiovascular: Denies chest pain, Denies leg edema, Denies palpitations, Denies dyspnea and Denies dyspnea on exertion Respiratory: Respiratory: Denies cough, Denies dyspnea and Denies dyspnea on exertion Gastrointestinal: Gastrointestinal: Denies abdominal pain, Denies constipation, Denies diarrhea, Denies nausea and Denies vomiting Genitourinary: Genitourinary: Denies hematuria, Denies urinary frequency, Denies dysuria, Denies pelvic pain, Denies urinary incontinence and Denies vaginal discharge Neurologic: Reports system reviewed and no additional complaints, except as documented Psychiatric: Psychiatric: Reports no additional psychiatric complaints Endocrine: Endocrine: Denies palpitations PMFSH Past Medical History Medical History Suppression of menses Family History Family History Other Hypertension Social History Social History Smoking status: Never smoker Alcohol intake: never Substance use: never Substance use type: does not use Do You Feel Safe in your Home?: Yes Lack of Transportation: No Lack of Food: Never True Current Housing: I Have Housing Concerned About Future Housing: No Difficulty Paying Gas/Electric Bills: No Difficulty Paying for Meds: No Currently Unemployed: No Education: Bachelor's Degree Difficulty w/ Childcare or Family Care: No Living arrangements: with family Additional living arrangements comments: Occupation/Education: occupation Gender identity (if verbalized by the patient): Female Sexual Orientation (if Verbalized by the Patient): Straight or Heterosexual Spiritual care concerns: No Meds Home Medications and Allergies Home Medications ?Medication ?Instructions ?Recorded ?Confirmed ?Type No Home Medications 01/09/25 01/09/25 History Allergies Allergy/AdvReac Type Severity Reaction Status Date / Time Penicillins Allergy Intermediate Rash Verified 01/09/25 03:59 Vital Signs Vital Signs - 24 hr 01/08/25 17:42 01/08/25 21:17 01/08/25 21:18 Temperature 96.8 F L Pulse Rate 90 73 75 Respiratory Rate 16 Blood Pressure 150/108 H 129/77 129/89 Pulse Oximetry 100 Oxygen Delivery 01/08/25 21:20 01/08/25 22:30 01/09/25 00:34 Temperature Pulse Rate 76 68 71 Respiratory Rate 16 16 Blood Pressure 127/94 H 110/80 118/80 Pulse Oximetry 100 100 Oxygen Delivery 01/09/25 02:08 01/09/25 02:17 01/09/25 02:18 Temperature 97.8 F Pulse Rate 82 91 Respiratory Rate 15 Blood Pressure 124/84 120/80 Pulse Oximetry 100 98 Oxygen Delivery 01/09/25 03:12 Temperature Pulse Rate Respiratory Rate Blood Pressure Pulse Oximetry Oxygen Delivery Room Air Exam Const: General: no acute distress Eyes: EOM: EOMs intact bilaterally Neck: Neck: supple Thyroid: thyroid normal Chest: Breast/axilla inspection: normal inspection of the breasts Breast/axilla palpation: normal palpation of the breasts, normal palpation of the axillae and no axillary lymphadenopathy Resp: Effort & Inspection: normal respiratory effort Auscultation: clear to auscultation bilaterally Cardio: Rate: regular rate Rhythm: regular rhythm GI: Inspection: non-distended GI Palp: Yes Soft to palpation, No Tenderness to palpation present (GI) and No Guarding due to palpation present (GI) Auscultation: normal bowel sounds : General: No bladder normal to palpation External Female Exam: normal external appearance Speculum Exam - Vagina: normal vaginal discharge and No vaginal bleeding Speculum Exam - Cervix: nontender Bimanual exam- vagina & uterus: No bladder normal to palpation and No Cervical tenderness present OB/external & speculum: No vaginal bleeding Skin: General skin exam: normal color and no rashes or lesions noted Neuro: Cognition (Neuro): normal cognition Speech: normal speech Extrem: General: normal to inspection and no edema Psych: Mental Status: mental status grossly normal Affect: normal affect H&P: Results Labs Labs: Short CBC 01/08/25 Range/Units 21:24 WBC 11.8 H (4.5-10.0) K/mm3 Hgb 13.3 (12.0-15.0) g/dL Hct 39.3 (37.0-47.0) % Plt Count 285 (150-375) k/mm3 BMP 01/08/25 21:24 Sodium 137 Potassium 3.9 Chloride 104 Carbon Dioxide 24 BUN 8 Creatinine 0.50 L Glucose 101 Calcium 9.6 Liver Function 01/08/25 Range/Units 21:24 Total Bilirubin 0.9 (0.2-1.3) mg/dL AST 16 (14-36) U/L ALT 15 (6-35) U/L Alkaline Phosphatase 63 (38-126) U/L Albumin 4.3 (3.5-5.1) g/dL Urine 01/09/25 Range/Units 00:01 Urine Color Yellow (Yellow) Urine Appearance Clear (Clear) Urine pH 6.5 (5.0-9.0) Ur Specific [place] 1.014 (1.001-1.035) Urine Protein Negative (Negative) mg/dL Urine Glucose (UA) Negative (Negative) mg/dL Assessment and Plan Assessment and plan (1) Incomplete : Code(s): O03.4 - Incomplete spontaneous without complication Status: Acute Assessment and Plan: 29 yo who presents with acute vaginal bleeding in the setting of incomplete Patient initially started having bleeding on 01/05/2025 Patient was diagnosed with spontaneous missed at that time Patient is scheduled for suction D&C on 01/11/2025 Patient started experiencing heavier vaginal bleeding yesterday Patient presented to the emergency room last night Patient was found hemodynamically stable Will plan to proceed with suction D&C for management of incomplete Risks, benefits, alternatives discussed at length
--- NOTE | 2025-01-09 07:35 | PC.NURSE ---
Discussed with pt and that they will be given the choice of either the hospital sending remains to a local home where they are cremated and buried annually at our [facility] with other baby's who have during the year or they can choose to have a private cremation or burial through a home at their expense.
--- NOTE | 2025-01-09 07:55 | PC.NURSE ---
Consents for D&C, jewelry waiver, and blood transfusion are on the chart. IV saline locked. Surgical hat on. Transferred to OR per stretcher by surgical team.
--- NOTE | 2025-01-09 08:00 | WPDANESEPPF ---
Anes - Initial Pre Proc Eval Procedure: Operation Date: 01/09/25 08:15 Proposed Procedures p D&C Suction and Sharp - Otto Puckett MD Date/Time: 01/09/25 08:00 Surgeon: Otto Puckett MD Pre Op Diagnosis: vaginal bleeding, demise Patient Data Age: 29 Gender: F Height: 1.68 m Weight: 105 kg Last Vital Signs Temp 97.8 F 01/09/25 02:17 Pulse 84 01/09/25 07:31 Resp 15 01/09/25 02:08 BP 117/75 01/09/25 07:31 Pulse Ox 96 01/09/25 07:31 O2 Del Method Room Air 01/09/25 03:12 Allergies Allergy/AdvReac Type Severity Reaction Status Date / Time Penicillins Allergy Intermediate Rash Verified 01/09/25 03:59 Home Medications ?Medication ?Instructions ?Recorded ?Confirmed ?Type No Home Medications 01/09/25 01/09/25 History Laboratory Tests 01/08/25 01/09/25 01/09/25 21:24 00:01 00:05 WBC 11.8 H K/mm3 (4.5-10.0) RBC 4.46 M/mm3 (4.2-5.4) Hgb 13.3 g/dL (12.0-15.0) Hct 39.3 % (37.0-47.0) MCV 88.1 fl (80-100) MCH 29.8 pg (26-34) MCHC 33.8 g/dl (32-36) RDW 12.2 % (11.5-14.5) Plt Count 285 k/mm3 (150-375) MPV 10.2 fl (7.4-10.4) Immature Gran % (Auto) 0.4 % (0-0.5) Neut % (Auto) 83.2 H % (45.5-73.1) Lymph % (Auto) 12.1 L % (18.3-44.2) [place] % (Auto) 3.9 % (2.6-8.5) Eos % (Auto) 0.2 % (0-4.4) Baso % (Auto) 0.2 % (0.2-1.2) Lymph # (Auto) 1.43 K/mm3 (0.9-3.2) [place] # (Auto) 0.5 K/mm3 (0.1-0.6) Eos # (Auto) 0.0 K/mm3 (0-0.3) Baso # (Auto) 0.0 K/mm3 (0.0-0.1) Abs Immat Gran (auto) 0.05 H K/mm3 (0.00-0.031) Absolute Neuts (auto) 9.8 H K/mm3 (1.3-6.7) Absolute Nucleated RBC 0.000 K/mm3 (0.0-0.012) Nucleated RBC % 0.0 % (0.0-0.2) PT 13.3 Seconds (11.1-14.7) INR 1.0 APTT 26.6 Seconds (22.3-36.8) Sodium 137 mmol/L (137-145) Potassium 3.9 mmol/L (3.4-5.0) Chloride 104 mmol/L (98-107) Carbon Dioxide 24 mmol/L (22-30) Anion Gap 9 mmol/L (4-12) BUN 8 mg/dL (7-17) Creatinine 0.50 L mg/dL (0.7-1.0) Estim Creat Clear Calc 170 ml/min Estimated GFR > 60 (59 - ) Glucose 101 mg/dL (65-110) Calcium 9.6 mg/dL (8.4-10.2) Total Bilirubin 0.9 mg/dL (0.2-1.3) AST 16 U/L (14-36) ALT 15 U/L (6-35) Alkaline Phosphatase 63 U/L (38-126) Total Protein 8.0 g/dL (6.3-8.2) Albumin 4.3 g/dL (3.5-5.1) Beta HCG, Quant 374.62 mIU/ML Urine Color Yellow (Yellow) Urine Appearance Clear (Clear) Urine pH 6.5 (5.0-9.0) Ur Specific [place] 1.014 (1.001-1.035) Urine Protein Negative mg/dL (Negative) Urine Glucose (UA) Negative mg/dL (Negative) Urine Ketones 1+ H mg/dL (Negative) Ur Blood (Man) 3+ H (Negative) Urine Nitrate Negative (Negative) Urine Bilirubin Negative (Negative) Urine Urobilinogen 1.0 mg/dL (<2.0) Leukocyte Esterase Rfl Trace H YASH/UL (Negative) Urine RBC 0-2 /hpf (0-2) Urine WBC 0-5 /hpf (0-3) Ur Squamous Epith Cells None seen /hpf (Few) Urine Bacteria None seen /hpf Urine Casts 0-2 POC Urine HCG, Qual Positive (Negative) Blood Type O Positive Antibody Screen Negative Screen Not Reportable Baby's Blood Type Not Reportable Baby's KALIA Not Reportable Doses of RhIg Required 0 : gestational age (currently 10 wk missed AB) Patient hx anesthesia problems: none Family hx anesthesia problems: none Results Review: All pre-operative results and documents have been reviewed as part of the pre-operative evaluation. [facility] Past Medical History Medical History Suppression of menses Family History Family History Other Hypertension Social History Social History Smoking status: Never smoker Alcohol intake: never Substance use: never Substance use type: does not use Do You Feel Safe in your Home?: Yes Lack of Transportation: No Lack of Food: Never True Current Housing: I Have Housing Concerned About Future Housing: No Difficulty Paying Gas/Electric Bills: No Difficulty Paying for Meds: No Currently Unemployed: No Education: Bachelor's Degree Difficulty w/ Childcare or Family Care: No Living arrangements: with family Additional living arrangements comments: Occupation/Education: occupation Gender identity (if verbalized by the patient): Female Sexual Orientation (if Verbalized by the Patient): Straight or Heterosexual Spiritual care concerns: No Anes - Eval Final PreProcedure Day of Procedure 01/09/25 08:00 Patient weight: obese Heart: regular rate and rhythm Lungs: clear to auscultation Airway: Mallampati scale class II Neurological: alert and oriented Last oral intake: >/= 8 hours ASA classification: II Emergent: no Anesthetic plan: proceed Anesthesia type and monitoring: general GIVS and standard monitoring Results Review: All pre-operative results and documents have been reviewed as part of the pre-operative evaluation. Missed ab, 10-13 weeks, BMI 37. Overall good health and active pt. Informed Consent: The patient's anesthetic plan and its attendant risks and benefits were discussed with the patient/family/POA. Questions were solicited and answers provided to the satisfaction of the patient/family/POA.
[2025-01-09] MEDS: KETOROLAC 30 MG/ML VIAL (*BKC) IV PUSH (08:18)
--- NOTE | 2025-01-09 08:23 | W.PM.PROC2 ---
Procedure Note - Detailed Date of Procedure 01/09/25 Pre-op Diagnosis vaginal bleeding, demise Post-op Diagnosis Same Procedure Performed Suction Dilation & curettage Surgeon Otto Puckett MD Anesthesia General Indications spontaneous missed on pelvic US Findings intrauterine products of conception Description of Procedure The patient was taken to the operating room after a missed had been noted on on transvaginal ultrasound. The risks, benefits and alternatives of the procedure were reviewed with the patient and informed consent was obtained. The patient was taken to the OR and anesthesia was noted to be adequate. The patient was placed in the dorsolithotomy position. Pelvic exam was performed with findings noted above. The patient was prepped and draped in the usual sterile fashion. Sterile speculum was placed in the vagina and the cervix was grasped with a tenaculum. The cervix was dilated further to allow for passage of a 8 mm suction curette. The 8 mm suction curette was gently advanced to the fundus, suction was activated, and the tip was rotated while being withdrawn to clear the uterus of products. This suction process was repeated 3 additional times due to the quantity of material in the uterus. The sharp curette was introduced and advanced to the fundus to remove any remaining products. The suction curette was reintroduced one final time to ensure all products had been removed. The above procedure was performed under direct US visualization. A good endometrial stripe was visualized after procedure. The tenaculum was removed. Good hemostasis was noted. Instrument, sponge, and sharp counts were correct. Patient tolerated the procedure well and was taken to the recovery room in stable condition. Estimated Blood Loss 20 Drains No Packing No Pathology Yes (products of conception) Complications No immediate complications Condition Stable Disposition Floor [facility] Billing Surgery - Charge Forward: Surgery Billing
[2025-01-09] MEDS: LACTATED RINGERS 1,000 ML 30 ML IV CONT (08:24)
[2025-01-09] MEDS: DOXYCYCLINE HYCLATE 100 MG TABLET 200 MG PO (08:45)
--- NOTE | 2025-01-09 09:27 | PC.NURSE ---
Pt returned from recovery room. Denies nausea; has some cramping. Menu to order food, water and cranberry juice given.
--- NOTE | 2025-01-09 09:29 | SUR.PHASEI ---
0824 pt is O positive blood type, no Rhogam needed.
--- NOTE | 2025-01-09 09:40 | PC.NURSE ---
Pt and have decided they would like to do a private cremation. List of homes given.
--- NOTE | 2025-01-09 13:33 | PC.NURSE ---
Permit for Release of Body and copy of Disposition- Notification Form hand delivered to lab personnel to be placed with path specimen from pt this am.
--- NOTE | 2025-01-09 13:56 | SUR.OPER ---
Dr. Puckett stated no chromosomal studies, sent to Path with formalin as products of conception.
--- NOTE | 2025-01-09 17:40 | SUR.OPER ---
Dora QUEZADA from OB transferred specimen to Pathology
--- NOTE | 2025-01-11 15:22 | PM.DS ---
DS: Admitting Diagnosis Discharge Date 01/09/25 Admitting Diagnosis incomplete DS: Discharge Diagnosis Discharge Diagnosis (1) Incomplete : Code(s): O03.4 - Incomplete spontaneous without complication Status: Acute DS: Summary Hospital Course Hospital Course: 29-year-old female who was diagnosed with spontaneous missed by ultrasound. She started having heavy vaginal bleeding at home and presented to the emergency room. Patient elected to proceed with surgical management via suction D&C. Procedure was performed without complication. Patient was discharged home in stable condition Status at Discharge Overall status at discharge: patient is back to baseline Time Spent with Patient Time attestation: Total time spent providing and/or coordinating discharge services: Time spent: Less than 30 minutes Exam Const: General: cooperative and comfortable Resp: Effort & Inspection: normal respiratory effort and able to speak in complete sentences Cardio: Rate: regular rate Rhythm: regular rhythm GI: Inspection: normal to inspection GI Palp: Yes Soft to palpation DS: Data Data Completed and Pending Pending studies at discharge: Pending at discharge 01/09/25 08:10 Surgical [PTH] Routine Discharge Plan Discharge Attending physician on discharge: Otto Puckett Consulting providers: Otto Puckett Discharging Clinician: Otto Puckett Patient Disposition: Home, Self-Care Activity: as tolerated and pelvic rest Diet: regular Discharge Instructions: Follow-Up: Call your Provider's office for an appointment to be seen in: 2 weeks EPISIOTOMY/PERINEAL CARE: * Change your pad frequently throughout the day * No tub baths until seen by your physician - You may shower BLEEDING: * Each individual will experience vaginal bleeding, but it will vary with each situation and individual woman. * Vaginal bleeding will go thru cycles-from bright red, to pinkish to a white, creamy discharge. This is considered normal. You may also experience a brownish discharge which is also normal. DIET AND NUTRITION: * Eat at least 3 regular, well-balanced meals per day: include all 4 food groups daily. * You may prefer 6 small meals. * Drink 6-8 glasses of water or non-caffeinated beverages per day. * Loss of appetite is common with loss. We encourage you to try to eat; this will help with both your physical and emotional health. ACTIVITY: * Rest as much as possible during the day. * Do not exercise or lift anything heavier than 10 pounds (such as laundry or other children.) * Avoid stairs or driving as much as possible, especially if you are taking pain medication. * Do not put anything into the vagina. No douching, tampons, or sexual activity until seen and released by your physician. * Listen to your body, and do not do what is uncomfortable or painful. EMOTIONAL HEALTH: * This is a very difficult and sad time for you and your family and friends. It may be helpful to refer to the booklets on loss that you received. * It is okay to be sad and to cry. Denial, anger, and guilt are also normal stages that you and your family may go thru during this time. Each person reaches these stages at their own pace. * Keep the lines of communication open between family and friends, and ask for help if needed. NOTIFY PHYSICIAN IF YOU HAVE ANY QUESTIONS OR IF ANY OF THE FOLLOWING SYMPTOMS OCCUR: * If your vaginal bleeding becomes foul smelling. * If your vaginal bleeding becomes more heavy than a period or if your bleeding changes from pink to bright red. However, you may pass an occasional walnut-sized clot once or twice for the first week . * If you experience a sharp, shooting pain in you calves. * If you discover a hard, reddened area on your breast or if you experience flu-like symptoms. * If you develop a temperature of 100.4 or greater. * If you are unable to eat or sleep and take care of activities that sustain life. * If you feel any desire to harm yourself or others, contact your physician immediately or go to the nearest emergency room. FOLLOW-UP CARE: * [facility] offers a and Loss Support group which meets the Saturday of every month from 7-9pm. * If consent was given, you will be contacted by a Share counselor to see how you are doing. * If you have questions regarding the grieving process or would like more resources or support, you can call a Share counselor at [phone] or via email at [email or web address] The Staff at [facility] wishes to extend our deepest sympathy during this very difficult time. Patient Instructions: Antibiotic Form, Miscarriage (DC), Dilation and Curettage (DC) Patient Language: Luxembourgish Stand Alone Forms: General Discharge Information Follow-up/Referrals: Otto Puckett MD [Physician] - 2 Weeks Discharge Medications: No Action No Home Medications Date of admission: 01/09/25 02:22 Primary Care Provider: UNKNOWN,DOCTOR Admitting Provider: Otto Puckett Attending physician on admission: Otto Puckett Condition: Stable
== END 2025-01-09 13:20 | disposition home or self-care (01) | DRG 770 ==
LOC: ANHED 01-09 01:41 → ANHOBPP 01-09 02:05
PROVIDERS: Physician Assistant; Admitting Provider Student in an Organized Health Care Education/Training Program; Emergency Provider Registered Nurse; Visit Provider Student in an Organized Health Care Education/Training Program
PROC: 10D17ZZ Extraction of Products of Conception, Retained, Via Natural or Artificial Opening (ICD-10-PCS; principal; 2025-01-09 08:15)
DX: O02.1 Missed abortion (principal); O03.4 Incomplete spontaneous abortion without complication; Z3A.13 13 weeks gestation of pregnancy; Z88.0 Allergy status to penicillin
CPT/HCPCS: 36415; 80053; 81001; 81025; 84702; 85025; 85461; 85610; 85730; 86850; 86900; 86901; 88305; 99199; 99285; A9270; G0378; J1100; J1885; J2003; J2250; J2405; J2704; J3010; J7120

== ENCOUNTER 2025-07-06 12:00 | Outpatient (CLI) | payer OTHER, SELFPAY ==
[2025-07-06 13:16] LABS: Hematocrit 38.3 % (37.0-47.0); Hemoglobin 12.6 g/dL (12.0-15.0); Mean Corpuscular HGB Conc 32.9 g/dl (32-36); Mean Corpuscular Hemoglobin 29.2 pg (26-34); Mean Corpuscular Volume 88.9 fl (80-100); Platelet Count Result 246 k/mm3 (150-375); Red Blood Count 4.31 M/mm3 (4.2-5.4); White Blood Count 8.5 K/mm3 (4.5-10.0)
[2025-07-06 13:40] LABS: Glucose 1 Hour PP 50gm Dose 128 mg/dL
[2025-07-06 14:06] LABS: Syphilis IgG/IgM Antibody Non-Reactive (Nonreactive)
[2025-07-06 14:10] LABS: Hepatitis B Surface Antigen Negative (Negative)
[2025-07-06 14:20] LABS: HIV 1/2 Ab P24 Ag Result Negative (Negative)
[2025-07-06 19:00] LABS: Beta HCG Quantitative 55176.00 mIU/ML
[2025-07-07 09:08] LABS: Cytomegalovirus (CMV) Ab, IgG >10.00 U/mL (0.00-0.59)
[2025-07-07 15:09] LABS: Varicella-Zoster Ab, IgG Non Reactive (Non Reactive); Varicella-Zoster Ab, IgM <0.91 index (0.00-0.90)
[2025-07-09 13:08] LABS: Parvovirus B19, IgG 6.5 index (0.0-0.8); Parvovirus B19, IgM 0.1 index (0.0-0.8)
== END 2025-07-06 12:01 | disposition home or self-care (01) ==
LOC: ANHLAB 12:00
PROVIDERS: PCP Student in an Organized Health Care Education/Training Program; Visit Provider Student in an Organized Health Care Education/Training Program
DX: N91.2 Amenorrhea, unspecified (principal)
CPT/HCPCS: 36415; 82947; 84702; 85027; 86593; 86644; 86703; 86747; 86762; 86787; 86850; 86900; 86901; 87086; 87340; G0432